=== PATIENT | male | born 2000 | race Caucasian/White ===

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

== ENCOUNTER 2021-08-25 00:01 | Emergency (ER) | payer OTHER, SELFPAY ==
[2021-08-25 00:11] VITALS: BP 120/60; PULSE 77; RESP 20; TEMP 36.6; O2SAT 98
--- NOTE | 2021-08-25 03:00 | PC.NURSE ---
After multiple checks for him the the ED waiting room I am still unable to locate him.I assume he left with his girlfriend who brought him here and was with him during and after triage was done.
== END 2021-08-25 02:30 | disposition left against medical advice (07) ==
PROVIDERS: Emergency Provider Emergency Medicine; PCP Family Medicine
DX: R10.9 Unspecified abdominal pain (principal)
CPT/HCPCS: 99281

== ENCOUNTER 2023-12-15 23:27 | Emergency (ER) | payer OTHER, SELFPAY ==
[2023-12-15 23:43] VITALS: BP 141/72; PULSE 90; RESP 16; TEMP 37.1; O2SAT 99; BMI 22.9
[2023-12-16] VITALS: BP 141/72; PULSE 84; RESP 18; O2SAT 98
--- NOTE | 2023-12-16 00:28 | DI.RAD.S_ITS ---
PROCEDURE: XR CHEST 1V INDICATIONS: CHEST PAIN TECHNIQUE: One view of the chest was acquired. COMPARISON: None. FINDINGS: Surgical changes and devices: None. Lungs and pleura: Lungs are clear. No pleural effusions or pneumothorax. Mediastinum: Mediastinal contours appear normal. Heart size is normal. Bones and chest wall: No suspicious bony lesions. Overlying soft tissues appear unremarkable. IMPRESSION: No acute cardiopulmonary abnormality is seen. Approved by: Shannon Astorga M.D.,Ph.D. on 12/16/2023 at 2:11
--- NOTE | 2023-12-16 00:33 | ED.GENADULT ---
HPI - General Adult General Chief complaint: Hypertension Stated complaint: high blood pressure, chest pain Time Seen by Provider: 12/15/23 23:42 Source: patient Mode of arrival: Ambulatory History of Present Illness HPI narrative: 26-year-old male presents for elevated blood pressure reading and palpitations at home. Patient states he was feeling very anxious and measured his blood pressure with his girlfriend's home wrist cuff. It was elevated at systolic over 200 and so he decided to come to the emergency department. He states he currently still feels somewhat anxious but improved. Denies known family history of heart problems. Related Data Previous Rx's Medication Instructions Recorded ketoconazole 2 % shampoo 1 applic topical 2XW 4 weeks #240 09/20/23 mL Allergies Allergy/AdvReac Type Severity Reaction Status Date / Time No Known Drug Allergies Allergy Verified 10/10/22 08:02 Patient History Medical History (Updated 12/16/23 @ 01:30 by Jacquelin Munguia MD) Seborrheic dermatitis of scalp Crohn's disease Family History (Updated 02/10/19 @ 14:40 by Rupa Siegel MD) Mother Ulcerative colitis Social History Smoking Status: Never smoker Smoking Status: Never smoker alcohol intake frequency: a few times a month Substance Use Type: does not use Exam Initial Vital Signs Initial Vital Signs: Vital Signs Temperature 98.7 F 12/15/23 23:43 Pulse Rate 90 12/15/23 23:43 Respiratory Rate 16 12/15/23 23:43 Blood Pressure 141/72 H 12/15/23 23:43 Pulse Oximetry 99 12/15/23 23:43 Oxygen Delivery Method Room Air 12/15/23 23:43 Const: Awake, alert, no acute distress, nontoxic appearing Cardiac: regular rate, regular rhythm RESP: unlabored, clear bilaterally, no wheezing GI: Soft, nontender, nondistended, no rebound, no guarding MSK: Atraumatic, full range of motion, pulses equal Skin: Warm, Dry, intact, no rashes Neuro: AO x3, CN II-XII grossly intact, moves all extremities Course Orders Ordered: ED Orders 12/16/23 00:28 Chest [XR chest 1V] Stat 12/16/23 00:48 CBC Auto Diff [Complete Blood Count AUTO DIFF] Stat CMP [Comprehensive Metabolic Panel] Stat TSH [Thyroid Stimulating Hormone] Stat Troponin & CK Cardiac Panel Stat Vital Signs Vital signs: Vital Signs - 8 hr 12/15/23 23:43 Temperature 98.7 F Pulse Rate 90 Respiratory Rate 16 Blood Pressure 141/72 H Pulse Oximetry 99 Oxygen Delivery Method Room Air Medical Decision Making Lab Data 12/16/23 00:48 12/16/23 00:48 Labs: Lab Results 12/16/23 Range/Units 00:48 WBC 8.6 (4.5-11.0) X10^3/uL RBC 4.60 (4.5-5.9) X10^6/uL Hgb 13.9 (13.5-17.5) g/dL Hct 40.4 L (41-53) % MCV 87.9 (80-100) fL MCH 30.1 (26-34) PG MCHC 34.3 (30-36) % RDW 12.6 (11.6-14.8) % Plt Count 295 (150-400) X10^3/uL Neut % (Auto) 69.0 (50-75) % Lymph % (Auto) 15.9 L (25-40) % [place] % (Auto) 13.4 (3-14) % Eos % (Auto) 1.2 L (2-4) % Baso % (Auto) 0.5 (0-2) % Neut # (Auto) 6000 (3684-6566) /uL Lymph # (Auto) 1400 (5505-4627) /uL [place] # (Auto) 1200 H (0-900) /uL Eos # (Auto) 100 (0-450) /uL Baso # (Auto) 0 (0-100) /uL Sodium 140 (137-145) mmol/L Potassium 3.7 (3.4-5.1) mmol/L Chloride 106 (98-107) mmol/L Carbon Dioxide 32 (22-32) mmol/L BUN 12 (9-20) mg/dL Creatinine 0.92 (0.66-1.25) mg/dL Estimated GFR > 60 (>60) mL/min BUN/Creatinine Ratio 13.0 (6-22) Glucose 87 (70-100) mg/dL Calcium 8.9 (8.4-10.2) mg/dL Total Bilirubin 0.2 (0.2-1.3) mg/dL AST 22 (17-59) IU/L ALT 22 (<50) IU/L Alkaline Phosphatase 97 (38-126) U/L Total Creatine Kinase 134 (55-170) U/L Troponin I < 0.012 (0.01-0.034) ng/mL Total Protein 7.0 (6.3-8.2) g/dL Albumin 4.1 (3.5-5.0) g/dL Globulin 2.9 (1.7-4.1) g/dL Albumin/Globulin Ratio 1.4 (1.0-2.8) TSH 1.76 (0.47-4.68) uIU/mL MDM Narrative Medical decision making narrative: Well-appearing patient with elevated blood pressure on a home wrist cuff and palpitations. Blood pressure has already improved to nearly within normal limits by the time of arrival to the emergency department. Laboratory work and chest x-ray normal. EKG negative for ischemic pathology. Patient counseled to follow up with primary doctor and recommended keeping a blood pressure diary. Discharge Plan Departure Patient Disposition: Home Clinical Impression: Chest pain, Elevated blood pressure reading Instructions: DI for Chest Pain Activity Restrictions/Additional Instructions: Your laboratory work, EKG, and chest x-ray imaging today were normal. If you continued to notice high blood pressures at home please follow up with the primary care doctor as you may need to start medications. Prescriptions: No Action ketoconazole 2 % shampoo 1 applic TOP 2XW 28 Days Qty: 240 3RF Rx Instructions: apply 5-10 ml to wet hair, lather, leave on for 5 minutes, then rinse completely. Referrals: Sunil Gong MD [Primary Care Provider] - Stand Alone Forms: Patient Portal/API
[2023-12-16 00:58] LABS: Add Manual Diff / Slide Review NO; Basophils Absolute Auto 0 /uL (0-100); Basophils Percent Auto 0.5 % (0-2); Eosinophils Absolute Auto 100 /uL (0-450); Eosinophils Percent Auto 1.2 % (2-4); Hematocrit 40.4 % (41-53); Hemoglobin 13.9 g/dL (13.5-17.5); Lymphocytes Absolute Auto 1400 /uL (1100-4500); Lymphocytes Percent Auto 15.9 % (25-40); Mean Corpuscular HGB Conc 34.3 % (30-36); Mean Corpuscular Hemoglobin 30.1 PG (26-34); Mean Corpuscular Volume 87.9 fL (80-100); Monocytes Absolute Auto 1200 /uL (0-900); Monocytes Percent Auto 13.4 % (3-14); Neutrophils Absolute Auto 6000 /uL (1500-7000); Platelet Count 295 X10^3/uL (150-400); Red Cell Distribution Width 12.6 % (11.6-14.8); White Blood Cell Count 8.6 X10^3/uL (4.5-11.0)
[2023-12-16 01:11] LABS: Alanine Aminotransferase 22 IU/L (<50); Albumin 4.1 g/dL (3.5-5.0); Albumin Globulin Ratio 1.4 (1.0-2.8); Alkaline Phosphatase 97 U/L (38-126); Aspartate Aminotransferase 22 IU/L (17-59); Bilirubin Total 0.2 mg/dL (0.2-1.3); Blood Urea Nitrogen 12 mg/dL (9-20); Calcium 8.9 mg/dL (8.4-10.2); Carbon Dioxide 32 mmol/L (22-32); Chloride 106 mmol/L (98-107); Creatine Kinase 134 U/L (55-170); Estimated Glomerular Filt Rate > 60 mL/min (>60); Globulin 2.9 g/dL (1.7-4.1); Glucose 87 mg/dL (70-100); HEMOLYSIS < 15 (0-50); Potassium 3.7 mmol/L (3.4-5.1); Sodium 140 mmol/L (137-145)
[2023-12-16 01:23] LABS: Troponin I < 0.012 ng/mL (0.01-0.034)
[2023-12-16 01:30] VITALS: BP 116/61; PULSE 78; RESP 16; O2SAT 96
[2023-12-16 01:42] LABS: Thyroid Stimulating Hormone 1.76 uIU/mL (0.47-4.68)
== END 2023-12-16 01:55 | disposition home or self-care (01) ==
PROVIDERS: Emergency Provider Emergency Medicine; PCP Family Medicine
DX: R07.9 Chest pain, unspecified (principal); R03.0 Elevated blood-pressure reading, without diagnosis of hypertension
CPT/HCPCS: 36415; 71045; 80053; 82550; 84443; 84484; 85025; 93005; 93010; 99283; 99284

== ENCOUNTER 2024-06-24 23:23 | Emergency (ER) | payer OTHER, SELFPAY ==
[2024-06-24 23:32] VITALS: BP 135/85; PULSE 70; RESP 15; TEMP 36.7; O2SAT 99; BMI 21.5
== END 2024-06-24 23:52 | disposition left against medical advice (07) ==
PROVIDERS: Emergency Provider Emergency Medicine; PCP Family Medicine
DX: F41.9 Anxiety disorder, unspecified (principal)
CPT/HCPCS: 99281

== ENCOUNTER 2024-06-29 11:53 | Emergency (ER) | payer OTHER, SELFPAY ==
[2024-06-29] VITALS (18 sets, daily range): BP systolic 117–147; BP diastolic 62–88; PULSE 81–122; RESP 12–23; TEMP 36.7; O2SAT 98–100; BMI 20.7
[2024-06-29 13:22] LABS: Ur Creatinine Normal (Normal); Ur Specific Gravity Normal (Normal); Urine Amphetamines Negative (Negative); Urine Barbiturates Negative (Negative); Urine Benzodiazepines Negative (Negative); Urine Cocaine Negative (Negative); Urine MDMA Negative (Negative); Urine Methadone Negative (Negative); Urine Methamphetamines Negative (Negative); Urine Opiates Negative (Negative); Urine Oxycodone Negative (Negative); Urine Phencyclidine Negative (Negative); Urine THC Negative (Negative); Urine Tricyclic Antidepressant Negative (Negative); Urine pH Normal (Normal)
[2024-06-29 13:24] LABS: Add Manual Diff / Slide Review NO; Basophils Absolute Auto 0 /uL (0-100); Basophils Percent Auto 0.3 % (0-2); Eosinophils Absolute Auto 0 /uL (0-450); Eosinophils Percent Auto 0.1 % (2-4); Hematocrit 49.6 % (41-53); Hemoglobin 16.8 g/dL (13.5-17.5); Lymphocytes Absolute Auto 700 /uL (1100-4500); Lymphocytes Percent Auto 7.9 % (25-40); Mean Corpuscular HGB Conc 33.9 % (30-36); Mean Corpuscular Hemoglobin 31.1 PG (26-34); Mean Corpuscular Volume 91.7 fL (80-100); Monocytes Absolute Auto 600 /uL (0-900); Monocytes Percent Auto 6.8 % (3-14); Neutrophils Absolute Auto 7800 /uL (1500-7000); Neutrophils Percent Auto 84.9 % (50-75); Platelet Count 318 X10^3/uL (150-400); Red Blood Cell Count 5.41 X10^6/uL (4.5-5.9); Red Cell Distribution Width 14.4 % (11.6-14.8); White Blood Cell Count 9.2 X10^3/uL (4.5-11.0)
[2024-06-29 13:31] LABS: Appearance Urine UA CLEAR; Bilirubin Urine UA NEGATIVE (NEGATIVE); Color Urine UA YELLOW; Glucose Urine UA NEGATIVE (Negative); Ketones Urine UA 2+ (NEGATIVE); Leukocyte Esterase Urine UA NEGATIVE (NEGATIVE); Nitrite Urine UA NEGATIVE (Negative); Occult Blood Urine UA NEGATIVE (Negative); Protein Urine UA NEGATIVE (Negative); Specific Gravity Urine UA 1.025 (1.000-1.035); Urobilinogen Urine UA 0.2 E.U./dL (0.2)
[2024-06-29 13:35] LABS: Acetaminophen < 10 ug/mL (10-30); Alanine Aminotransferase 25 IU/L (<50); Albumin 4.7 g/dL (3.5-5.0); Albumin Globulin Ratio 1.3 (1.0-2.8); Alkaline Phosphatase 219 U/L (38-126); Aspartate Aminotransferase 40 IU/L (17-59); BUN Creatinine Ratio 16.2 (6-22); Bilirubin Total 0.5 mg/dL (0.2-1.3); Blood Urea Nitrogen 12 mg/dL (9-20); Calcium 9.6 mg/dL (8.4-10.2); Carbon Dioxide 21 mmol/L (22-32); Chloride 104 mmol/L (98-107); Estimated Glomerular Filt Rate > 60 mL/min (>60); Ethanol (ETOH) 33 mg/dL; Globulin 3.5 g/dL (1.7-4.1); Glucose 77 mg/dL (70-100); HEMOLYSIS 16 (0-50); Potassium 3.8 mmol/L (3.4-5.1); Salicylate < 1.0 mg/dL (<20); Sodium 140 mmol/L (137-145); Total Protein 8.2 g/dL (6.3-8.2)
[2024-06-29 13:50] LABS: RBC Urine 5-10/HPF (0-5/HPF); Urine Volume 10mL (spun); WBC Urine 0-1/HPF (0-5/HPF)
[2024-06-29 13:51] LABS: Bacteria Urine Few (2-10); Culture Indicated Urine Cult Not Indicated; Free T4, Direct Thyroxine 1.06 ng/dL (0.78-2.19); Mucus Urine 2+ (Negative); Squamous Epithelial Cell Urine 0-1 /HPF (0-5/HPF)
[2024-06-29 14:05] LABS: Thyroid Stimulating Hormone 0.583 uIU/mL (0.47-4.68)
--- NOTE | 2024-06-29 14:42 | ED_ITS ---
HPI - Alcohol General Chief Complaint: Toxicology Problem Stated Complaint: ETOH withdrawal Time Seen by Provider: 06/29/24 14:41 History of Present Illness HPI narrative: 23-year-old male with history of alcohol use with regular drinking over the last 2-3 months, last drank last night, would like help with stopping drinking, no seizures, feels a little shakiness. Has not gone through alcohol withdrawal before. He denies use of other drugs. Related Data Previous Rx's Medication Instructions Recorded ketoconazole 2 % shampoo 1 applic topical 2XW 4 weeks #240 09/20/23 mL hydroxyzine HCl 25 mg tablet 25 mg PO QID PRN anxiety 14 days 06/25/24 #56 tabs Allergies Allergy/AdvReac Type Severity Reaction Status Date / Time No Known Drug Allergies Allergy Verified 06/25/24 15:06 Patient History Medical History (Updated 06/29/24 @ 17:27 by Huber Champagne MD) Seborrheic dermatitis of scalp Crohn's disease Family History Mother Ulcerative colitis Social History Smoking Status: Never smoker Smoking Status: Never smoker alcohol intake frequency: a few times a month Exam Narrative Exam Narrative: GENERAL: Well-developed patient, in mild distress. HEAD: Atraumatic. Normocephalic. EYES: Pupils equal round and reactive. Extraocular motions intact. No scleral icterus. No injection or drainage. ENT: Nose without bleeding, purulent drainage. Throat without erythema, tonsillar hypertrophy or exudate. Airway patent. NECK: Trachea midline. Non tender CARDIOVASCULAR: Regular rate and rhythm without murmurs, gallops, or rubs. RESPIRATORY: Clear to auscultation. Breath sounds equal bilaterally. No wheezes, rales, or rhonchi. GASTROINTESTINAL: Abdomen soft, non-tender, nondistended. EXTREMITIES: No edema or joint tenderness. BACK: Nontender without deformity or crepitance. No flank tenderness. NEURO: AOx3. Motor functions grossly nonfocal SKIN: No rash or erythema of visible areas Initial Vital Signs Initial Vital Signs: Vital Signs Temperature 98.1 F 06/29/24 12:39 Pulse Rate 122 H 06/29/24 12:39 Respiratory Rate 20 06/29/24 12:39 Blood Pressure 117/78 06/29/24 12:39 Pulse Oximetry 98 06/29/24 12:39 Oxygen Delivery Method Room Air 06/29/24 12:39 Course Orders Ordered: ED Orders 06/29/24 12:53 Consult to WASHHOUSE WORKER - C4 Planner Stat 06/29/24 13:00 Acetaminophen Stat Complete Blood Count AUTO DIFF Stat Comprehensive Metabolic Panel Stat Ethanol (ETOH) Stat Free T4, Direct Thyroxine Stat Salicylate Stat Thyroid Stimulating Hormone Stat Urinalysis and Microscopic Stat Urine Drug Screen, Rapid Stat Discontinued Medications Phenobarbital (Phenobarbital 65 Mg/Ml Vial) 65 mg IV NOW ONE Stop: 06/29/24 14:46 Last Admin: 06/29/24 14:50 Dose: 65 mg Documented By: SB Vital Signs Vital signs: Vital Signs - 8 hr 06/29/24 12:39 06/29/24 13:01 06/29/24 13:01 Temperature 98.1 F Pulse Rate 122 H 95 H Respiratory Rate 20 14 Blood Pressure 117/78 147/87 H Pulse Oximetry 98 99 Oxygen Delivery Method Room Air 06/29/24 13:30 06/29/24 13:30 06/29/24 14:00 Temperature Pulse Rate 98 H 89 Respiratory Rate 23 12 Blood Pressure 136/82 Pulse Oximetry 99 99 Oxygen Delivery Method 06/29/24 14:00 06/29/24 14:30 06/29/24 15:00 Temperature Pulse Rate 89 Respiratory Rate 22 Blood Pressure 129/70 121/88 Pulse Oximetry 99 Oxygen Delivery Method 06/29/24 15:00 06/29/24 15:30 06/29/24 15:30 Temperature Pulse Rate 88 Respiratory Rate 16 Blood Pressure 125/76 126/74 Pulse Oximetry 98 Oxygen Delivery Method Room Air 06/29/24 16:00 06/29/24 16:00 06/29/24 16:30 Temperature Pulse Rate 85 Respiratory Rate 16 Blood Pressure 122/62 124/72 Pulse Oximetry 99 Oxygen Delivery Method 06/29/24 16:30 06/29/24 17:00 06/29/24 17:00 Temperature Pulse Rate 89 92 H Respiratory Rate 14 14 Blood Pressure 127/77 Pulse Oximetry 99 100 Oxygen Delivery Method Room Air 06/29/24 17:30 06/29/24 18:00 06/29/24 18:00 Temperature Pulse Rate 92 H Respiratory Rate 18 Blood Pressure 129/68 126/76 Pulse Oximetry 100 Oxygen Delivery Method MDM - Alcohol Lab Data Attestation: I reviewed the patient's lab results. Lab results narrative: White blood cell count 9200, hemoglobin 16.8, platelets adequate, sodium 140, potassium 3.8, chloride 104, serum dioxide 21, BUN 12 with creatinine 0. Some 4, glucose 77. Alkaline phosphatase 219, other liver functions unremarkable. Urine drug screen negative. Blood alcohol level 33. Urinalysis negative. 06/29/24 13:00 06/29/24 13:00 Labs: Lab Results 06/29/24 06/29/24 Range/Units 13:00 13:00 WBC 9.2 (4.5-11.0) X10^3/uL RBC 5.41 (4.5-5.9) X10^6/uL Hgb 16.8 (13.5-17.5) g/dL Hct 49.6 (41-53) % MCV 91.7 (80-100) fL MCH 31.1 (26-34) PG MCHC 33.9 (30-36) % RDW 14.4 (11.6-14.8) % Plt Count 318 (150-400) X10^3/uL Neut % (Auto) 84.9 H (50-75) % Lymph % (Auto) 7.9 L (25-40) % [place] % (Auto) 6.8 (3-14) % Eos % (Auto) 0.1 L (2-4) % Baso % (Auto) 0.3 (0-2) % Neut # (Auto) 7800 H (4288-8944) /uL Lymph # (Auto) 700 L (1351-8050) /uL [place] # (Auto) 600 (0-900) /uL Eos # (Auto) 0 (0-450) /uL Baso # (Auto) 0 (0-100) /uL Sodium 140 (137-145) mmol/L Potassium 3.8 (3.4-5.1) mmol/L Chloride 104 (98-107) mmol/L Carbon Dioxide 21 L (22-32) mmol/L BUN 12 (9-20) mg/dL Creatinine 0.74 (0.66-1.25) mg/dL Estimated GFR > 60 (>60) mL/min BUN/Creatinine Ratio 16.2 (6-22) Glucose 77 (70-100) mg/dL Calcium 9.6 (8.4-10.2) mg/dL Total Bilirubin 0.5 (0.2-1.3) mg/dL AST 40 (17-59) IU/L ALT 25 (<50) IU/L Alkaline Phosphatase 219 H (38-126) U/L Total Protein 8.2 (6.3-8.2) g/dL Albumin 4.7 (3.5-5.0) g/dL Globulin 3.5 (1.7-4.1) g/dL Albumin/Globulin Ratio 1.3 (1.0-2.8) TSH 0.583 (0.47-4.68) uIU/mL Free T4 1.06 (0.78-2.19) ng/dL Urine Color Yellow Urine Appearance Clear Urine pH 6.0 Normal (4.5-8.0) Ur Specific [place] 1.025 (1.000-1.035) Urine Protein Negative (Negative) Urine Glucose (UA) Negative (Negative) g/dL Urine Ketones 2+ H (NEGATIVE) Urine Occult Blood Negative (Negative) Urine Nitrate Negative (Negative) Urine Bilirubin Negative (NEGATIVE) Urine Urobilinogen 0.2 (0.2) E.U./dL Ur Leukocyte Esterase Negative (NEGATIVE) Urine RBC 5-10/hpf H (0-5/HPF) Urine WBC 0-1/hpf (0-5/HPF) Ur Squamous Epith Cells 0-1 /hpf (0-5/HPF) Urine Bacteria Few (2-10) H (None) Urine Mucus 2+ H (Negative) Ur Culture Indicated? Cult not indicated Vol Urine Centrifuged 10ml (spun) Salicylates < 1.0 (<20) mg/dL U Opiates 300ng/mL cut Negative (Negative) Ur Oxycodone Screen Negative (Negative) Urine Methadone Screen Negative (Negative) Acetaminophen < 10 (10-30) ug/mL Ur Barbiturates Screen Negative (Negative) U Tricyclic Antidepress Negative (Negative) Ur Phencyclidine Scrn Negative (Negative) Ur Amphetamines Screen Negative (Negative) U Methamphetamines Scrn Negative (Negative) Ur MDMA Scrn (Ecstasy) Negative (Negative) U Benzodiazepines Scrn Negative (Negative) Urine Cocaine Screen Negative (Negative) U Marijuana (THC) Screen Negative (Negative) Urine Specific [place] Normal (Normal) Ethyl Alcohol 33 H ( - 10) mg/dL Ur Creatinine Normal (Normal) MDM Narrative Medical decision making narrative: 23-year-old male with history of alcohol use regular and heavy for the last 2-3 months, last drink last night, feels like he might be going through some withdrawal, we would like to stop drinking alcohol. No thoughts of hurting self or others. Screening labs sent. Alcohol level measurable at 33, other screening labs generally unremarkable. CIWA score initially to, increasing to 5, we will give IV phenobarbital 65 mg. substance abuse services director consultation regarding disposition plan. substance abuse services director evaluation, patient will be going to [facility] detox services. Discharged from emergency department. Transport to [facility] services for further treatment. Discharge Plan Departure Patient Disposition: Home Clinical Impression: Alcohol abuse, Alcohol withdrawal Activity Restrictions/Additional Instructions: Regular alcohol use, some early alcohol withdrawal symptoms that responded to a dose of phenobarbital in the emergency department, desire to detox from alcohol use, discharged in the emergency department. Present to [facility] for further care and observation. Return to this/nearest emergency department for any change worsening symptoms or any concerns prior Prescriptions: No Action hydroxyzine HCl 25 mg tablet 25 mg PO QID PRN (Reason: anxiety) 14 Days Qty: 56 0RF ketoconazole 2 % shampoo 1 applic TOP 2XW 28 Days Qty: 240 3RF Rx Instructions: apply 5-10 ml to wet hair, lather, leave on for 5 minutes, then rinse completely. Referrals: Sunil Gong MD [Primary Care Provider] - Stand Alone Forms: Patient Portal/API/Survey
[2024-06-29] MEDS: PHENobarbital 65 MG/ML VIAL IV (14:50)
--- NOTE | 2024-06-29 16:53 | CM.SWNOTE ---
ED PILOT BOAT CAPTAIN Assessment Note: PILOT BOAT CAPTAIN - Oxyacetylene Burner Assessment PILOT BOAT CAPTAIN/Oxyacetylene Burner Assessment Time Spent with Patient Start date 06/29/24 Visit Start Time 15:30 End date 06/29/24 Visit End Time 16:00 Total time Care Management spent on 30 minutes patient visit-in minutes Mental Health Screening Include Onset, Duration, Intensity Presenting Problem Patient presented to the ED via POV with concerns for ETOH withdrawal. Patient explains he has been feeling horrible, excessive anxiety and dread, sluggish, tremors, hot flashes and nausea with no emesis. Precipitating Event(s) Patient explains he is experiencing relationship issues and has been utilizing ETOH to help him cope. Patient explains he has been drinking heavily in the past two months. In the last week, patient explains he has been drinking at least 10 mix drinks of various liquors, some nights he was drinking as much as 30 drinks per night. His last drink was at approximately 0600 on 06/29. Patient Strengths Patient is supported by his sister, Peg, and has other family members ready to support patient. Family will dispose of any alcohol in the home pt lives in and support during detox. Current Behavioral Health Provider(s) None reported. Include Facility, Provider, Ph. # Psych. Hx Mental Health and Chemical None reported. Dependency Family Hx of Behavioral Abuse None reported. Psychiatric Hospitalizations (date(s)/ None reported. location) Psychosocial information & Support Patient is a 23yo male, Systems resident of [place] with his mother, stepfather and younger brother. School/Work Patient works at the [employer]. Substance Abuse Screening Include Onset, Duration, Intensity Rehab Facilities? ((Date(s), Location(s) None reported. ) History of Withdrawal? Seizures? No hx of seizures, currently mildly tremulous and anxious. Longest Period of Sobriety Longest period is 7 months, July - January 2024. Legal Concerns Legal Matters - Outstanding Issues None reported. Mental Status Orientation (Person/Place/Time) AOx3 Stated Mood Horrible Affect (Congruent with Mood?) Flat, tearful, congruent with mood Thought Content - Specify/Describe Patient explains he sees Obsessions, Delusions, Hallucinations images when he closes his eyes . Patient could not identify what those images were but noted they were weird and I' ve never seen them before. No other delusions or hallucinations identified or reported during assessment. Thought Processes (Ujynhbd-Mdrnnntl-Gsav Goal directed, logical Hyhxbxdc-Nngxfane-Qjqurwikqr- Phirewodeufkdi-Nmmssnh-Jmzlfeozolgn- Thought Blocking) Speech (Wemqsq-Xswh-Jyhgxcz-Rapid-Soft- Normal Loud-Pressured) Motor (Szfxfr-Iyfuwydmo-Iflq-Other) Normal Insight (Ighu-Cmot-Dlbx/Limited) Fair Judgement (Eyqz-Oxgw-Ikqy/Limited) Fair Impulse Control (Adequate-Impaired) Impaired Memory (Qnvlhzkum-Ahtjnn-Zqkozu, Intact Impaired-Intact) Concentration (Intact-Impaired) Intact Attention (Intact-Impaired) Intact Behavior (Appropriate-Inappropriate) Appropriate Additional Comment Patient is calm, cooperative and communicative during assessment. Risk Assessment Suicidal Ideation (Plan) No Homicidal Ideation (Plan) No Intervention Intervention Reviewed chart and ED staff for pt's medical status and initial discharge needs. PILOT BOAT CAPTAIN entered room to meet with patient, introduced self and role. Present in the room is pt's sister, Peg, and pt agreed to have sister in the room during assessment. Patient endorsed relationship issues with his girlfriend whom he has been with for the past 3.5 years and utilizing ETOH to cope. Patient explains he last drank at around 0600 on 06/29 and has been drinking heavily for the past 2 months, drinking an average of 10 drinks of various liquors a night. PILOT BOAT CAPTAIN and patient discuss next steps. Patient is hopeful for detox at home with support of family with a referral to [facility] but also understands detox might require more supervision at a detox facility and rehab or IOP to follow. At this time, it is the opinion of this PILOT BOAT CAPTAIN that patient would benefit from ETOH detox and follow up with intensive outpatient treatment. PILOT BOAT CAPTAIN informs ED provider, Dr. Champagne, who indicates agreement. PILOT BOAT CAPTAIN informs MARY Jenkins. Plan RA Plan Pending medical clearance, ED to send referrals for detox and IOP. Malgorzata Orellana COMPUTER OPERATIONS SUPERVISOR
--- NOTE | 2024-06-29 19:32 | CM.SWNOTE ---
ED MEDICAL TRANSCRIPTION RADIOLOGY Note: ED MEDICAL TRANSCRIPTION RADIOLOGY discussed pt with ED Provider who recommended detox facility before dc home. ED MEDICAL TRANSCRIPTION RADIOLOGY re-entered room, discussed ED Provider recommendation. Pt agreeable to plans for detox bed before discharge home and IOP referral. Pt stated preference for referral to IOP program that can establish care soonest. ED MEDICAL TRANSCRIPTION RADIOLOGY sent referral via fax to [facility], coordinated phone screening with [facility] and pt. ED MEDICAL TRANSCRIPTION RADIOLOGY spoke with pt and family at length about voluntary treatment and modeled self-advocacy as pt discussed anxiety around length of treatment. ED MEDICAL TRANSCRIPTION RADIOLOGY sent referral to [facility] via web form utilizing pt demographic information in EMR, provided handout to pt for reference. 1920: [facility] reports pt has been officially accepted for detox services by their provider. ED MEDICAL TRANSCRIPTION RADIOLOGY notified ED Provider, RN, and patient and pt family. It is reported pt?s sister can transport pt to facility. Plan: Pt to discharge to [facility] for ETOH withdrawal and follow up with [facility] for co-occurring IOP treatment, post-detox. REGGIE Mitchell
== END 2024-06-29 20:24 | disposition home or self-care (01) ==
PROVIDERS: Emergency Provider Emergency Medicine; PCP Family Medicine
DX: F10.139 Alcohol abuse with withdrawal, unspecified (principal); Y90.1 Blood alcohol level of 20-39 mg/100 ml
CPT/HCPCS: 36415; 80053; 80305; 80320; 80329; 81001; 84439; 84443; 85025; 96374; 99284; G0480; J2560